=== PATIENT | female | born 1955 | race Asian ===

== ENCOUNTER → 2018-10-27 | Outpatient (CLI) | payer MEDICAID ==
[~2018-10-27] MED LIST: SESTAMIBI TC99M/UD ISOTOPE 1 EA INJ INJ ONE
== END | disposition home or self-care (01) ==
LOC: RADMN 08:49
PROVIDERS: ATTEND Internal Medicine Nephrology
DX: E21.3 Hyperparathyroidism, unspecified (principal)
CPT/HCPCS: 78070; A9500